=== PATIENT | male | born 1980 | race Caucasian/White ===

== ENCOUNTER 2018-02-02 16:24 | Emergency (ER) | payer OTHER ==
[2018-02-02 16:40] VITALS: TEMP 98.7
[2018-02-02] MEDS ORDERED: traMADol HCL 50 MG TAB PO ONE (16:48)
--- NOTE | 2018-02-02 17:19 | RAD ---
EXAM DESCRIPTION: Knee,Right Complete CLINICAL HISTORY: 37 years Male medial pain after twisting COMPARISON: None. TECHNIQUE: Right knee, 3 views FINDINGS: No acute fractures or dislocations are identified. No osseous destructive lesions. No joint effusion is noted. IMPRESSION: No acute fracture is identified. Electronically signed by: Rowena Nicolas MD 02/02/2018 5:18 PM CDT
--- NOTE | 2018-02-02 17:44 | ED.PDOC ---
History of Present Illness - General Chief Complaint: Lower Extremity Injury Stated Complaint: right knee injury Time Seen by Provider: 02/02/18 16:28 Source: patient Exam Limitations: no limitations - History of Present Illness Initial Comments: the patient is a 37-year-old male presenting to the emergency room secondary to right knee pain. He fell yesterday and twisted it. He had recently had a meniscus repair on that side 3 months ago. He had actually just Out of his knee brace and crutches. There is a mild joint effusion around the knee. He has tenderness to palpation medially. He reports that he feels that the knee will give out if he walks on it too much. The patient has significant guarding with the knee exam. No obvious crepitus or locking or popping on limited exam. Timing/Duration: 24 hours Severity: moderate Improving Factors: nothing Worsening Factors: movement Associated Symptoms: denies symptoms Allergies/Adverse Reactions: Allergies Cyclobenzaprine [From Flexeril] Allergy (Verified 02/02/18 16:45) Other edema Methocarbamol Allergy (Verified 08/04/16 15:49) Ondansetron [From Zofran] Allergy (Verified 02/02/18 16:45) Other "makes me sicker" Home Medications: Ambulatory Orders Tramadol HCl 50 mg PO Q8HRS PRN #30 tab 02/02/18 Review of Systems - Review of Systems Constitutional: States: no symptoms reported EENTM: States: no symptoms reported Respiratory: States: no symptoms reported Cardiology: States: no symptoms reported Gastrointestinal/Abdominal: States: no symptoms reported Genitourinary: States: no symptoms reported Musculoskeletal: States: see HPI Skin: States: no symptoms reported Neurological: States: no symptoms reported Endocrine: States: no symptoms reported All other Systems: No Change from Baseline Past Medical History (General) - Patient Medical History Hx Seizures: No Hx Stroke: Yes Hx Dementia: No Hx Asthma: Yes Hx of COPD: No Hx Cardiac Disorders: No Hx Congestive Heart Failure: Yes Hx Pacemaker: No Hx Hypertension: No Hx Thyroid Disease: No Hx Diabetes: Yes Hx Gastroesophageal Reflux: No Hx Renal Disease: No Hx Cancer: No Hx of HIV: No Hx Hepatitis C: No Hx MRSA: No Surgical History: other - Vaccination History Hx Tetanus, Diphtheria Vaccination: Yes Hx Influenza Vaccination: Yes Hx Pneumococcal Vaccination: No - Social History Hx Tobacco Use: Yes Hx Chewing Tobacco Use: No Hx Alcohol Use: Yes Hx Substance Use: No Hx Substance Use Treatment: No Hx Depression: No Hx Physical Abuse: No Hx Emotional Abuse: No Hx Suspected Abuse: No Family Medical History - Family History Father Family History: Unknown Living Status: Unknown Physical Exam - Physical Exam General Appearance: Alert, Comfortable, No apparent distress Eye Exam: bilateral normal Ears, Nose, Throat: normal ENT inspection, normal pharynx Respiratory: no respiratory distress, no accessory muscle use Cardiovascular/Chest: normal peripheral pulses, no edema Peripheral Pulses: radial,right: 2+, radial,left: 2+, dorsalis pedis,right: 2+, dorsalis pedis,left: 2+, posterior tibialis,right: 2+, posterior tibialis,left: 2+ Rectal Exam: deferred Extremity: normal range of motion, no pedal edema, no calf tenderness, normal capillary refill, other - see history of present illness Neurologic: alert, normal mood/affect, oriented x 3 Skin Exam: normal color Comments: Vital Signs - 24 hr 02/02/18 16:32 Temperature 98.7 F Pulse Rate [ 112 H right brachial] Respiratory 16 Rate Blood Pressure 162/111 [right brachial ] O2 Sat by Pulse 98 Oximetry Progress - Progress Progress: 02/02/18 17:44 the patient is a 37-year-old male presenting to the emergency room secondary to a repeat right knee injury. Suspected MCL strain versus partial tear. The patient is to resume his crutches and knee brace with minimal weightbearing. He needs to follow back up with his orthopedist in 1-2 weeks for repeat evaluation. Tramadol will be written for as needed use for pain control. Ibuprofen can be used additionally as needed. ER warnings were given for any significant worsening. X-ray of the right knee shows no acute bony pathology. Departure - Departure Clinical Impression: Sprain of knee Qualifiers: Encounter type: initial encounter Involved ligament of knee: medial collateral ligament Laterality: right Qualified Code(s): S83.411A - Sprain of medial collateral ligament of right knee, initial encounter Disposition: Discharge to Home or Self Care Condition: Fair Departure Forms: ED Discharge - Pt. Copy, Patient Portal Self Enrollment Diet: regular diet Activity: no pushing/pulling with affected limb Prescriptions: Tramadol HCl 50 mg PO Q8HRS PRN #30 tab PRN Reason: Joint Or Muscle Pain Home Medications: Ambulatory Orders Tramadol HCl 50 mg PO Q8HRS PRN #30 tab 02/02/18 Additional Instructions: the patient is a 37-year-old male presenting to the emergency room secondary to a repeat right knee injury. Suspected MCL strain versus partial tear. The patient is to resume his crutches and knee brace with minimal weightbearing. He needs to follow back up with his orthopedist in 1-2 weeks for repeat evaluation. Tramadol will be written for as needed use for pain control. Ibuprofen can be used additionally as needed. ER warnings were given for any significant worsening. X-ray of the right knee shows no acute bony pathology.
[2018-02-02 18:08] VITALS: BP 147/91; O2SAT 97
== END 2018-02-02 17:58 | disposition home or self-care (01) ==
LOC: ER 16:24
DX: S83.411A Sprain of medial collateral ligament of right knee, initial encounter (principal); I50.9 Heart failure, unspecified; E11.9 Type 2 diabetes mellitus without complications; Z86.73 Personal history of transient ischemic attack (TIA), and cerebral infarction without residual deficits; Z87.891 Personal history of nicotine dependence; X50.1XXA Overexertion from prolonged static or awkward postures, initial encounter; Y92.9 Unspecified place or not applicable

== ENCOUNTER 2018-04-11 23:25 | Emergency (ER) | payer OTHER ==
[2018-04-11 23:38] VITALS: BP 153/94; TEMP 99; O2SAT 95
[2018-04-11] MEDS ORDERED: KETOROLAC TROMETHAMINE INJ 60 MG/2 ML VIAL IM ONE (23:40)
[2018-04-11] MEDS ORDERED: traMADol HCL 50 MG (ER DISP) # 6 TABS PO ONE (23:40)
--- NOTE | 2018-04-11 23:42 | ED.PDOC ---
History of Present Illness - General Chief Complaint: Abdominal Pain Stated Complaint: mid abd pain Time Seen by Provider: 04/11/18 23:40 Information Source: patient, RN notes reviewed, Vital Signs reviewed Exam Limitations: no limitations - History of Present Illness Abdominal Pain Onset Location: periumbilical Pain Radiation: no radiation Quality: moderate, cramping, dull Timing/Duration: 7-24 hours Improving Factors: rest Worsening Factors: nothing Associated Symptoms: denies symptoms, other - pt reports new mass that is worsened with standing and coughing, no redness, no fever, no n/v or intactable pain Review of Systems - Review of Systems Constitutional: States: no symptoms reported EENTM: States: no symptoms reported Respiratory: States: no symptoms reported Cardiology: States: no symptoms reported Gastrointestinal/Abdominal: States: see HPI Genitourinary: States: no symptoms reported Musculoskeletal: States: no symptoms reported Skin: States: no symptoms reported Past Medical History (General) - Patient Medical History Hx Seizures: No Hx Stroke: Yes Hx Dementia: No Hx Asthma: Yes Hx of COPD: No Hx Cardiac Disorders: No Hx Congestive Heart Failure: Yes Hx Pacemaker: No Hx Hypertension: Yes Hx Thyroid Disease: No Hx Diabetes: Yes Hx Gastroesophageal Reflux: No Hx Renal Disease: No Hx Cancer: No Hx of HIV: No Hx Hepatitis C: No Hx MRSA: No Surgical History: other - Vaccination History Hx Tetanus, Diphtheria Vaccination: Yes Hx Influenza Vaccination: Yes Hx Pneumococcal Vaccination: No - Social History Hx Tobacco Use: Yes Hx Chewing Tobacco Use: No Hx Alcohol Use: No - smells of ETOH Hx Substance Use: No Hx Substance Use Treatment: No Hx Depression: No Feels Threatened In Home Enviroment: No Feels Threatened In a Relationship: No Hx Physical Abuse: No Hx Emotional Abuse: No Hx Suspected Abuse: No Family Medical History - Family History Father Family History: Unknown Living Status: Unknown Hx Family Asthma: No Hx Family Congestive Heart Failure: No Physical Exam - Physical Exam General Appearance: Alert, No apparent distress, Well Developed, Well Groomed, Well Hydrated, Well Nourished Eyes, Ears, Nose, Throat Exam: PERRL/EOMI, normal ENT inspection Neck: non-tender, full range of motion, supple Respiratory: chest non-tender, lungs clear, normal breath sounds Cardiovascular/Chest: normal peripheral pulses, regular rate, rhythm, no edema Peripheral Pulses: No deficit Gastrointestinal/Abdominal: soft, hernia - mid abdomen, quarter size, reducable with no redness, not hard Back Exam: normal inspection, no CVA tenderness, no vertebral tenderness Extremity: normal range of motion, non-tender, normal inspection Neurologic: no motor/sensory deficits, alert, normal mood/affect Skin Exam: normal color, warm/dry Progress - Progress Progress: 04/11/18 23:46 gave precautions for incarcerated hernia, pt non toxic, pain is controlled, discussed hernia care with patient will return if acute worsening or problem Departure - Departure Clinical Impression: Hernia of abdominal wall Abdominal pain Qualifiers: Abdominal location: periumbilical Qualified Code(s): R10.33 - Periumbilical pain Time of Disposition: 23:43 Disposition: Discharge to Home or Self Care Condition: Excellent Departure Forms: ED Discharge - Pt. Copy, Patient Portal Self Enrollment Instructions: DI for Abdominal Pain-Adult, Abdominal Wall Hernias Diet: resume usual diet Activity: increase activity as tolerated, other - no lifting over 10lb Prescriptions: Celecoxib 100 mg PO BID PRN #20 cap PRN Reason: Pain Home Medications: Ambulatory Orders Tramadol HCl 50 mg PO Q8HRS PRN #30 tab 02/02/18 Celecoxib 100 mg PO BID PRN #20 cap 04/11/18 Lisinopril [Prinivil] 10 mg PO DAILY 04/11/18 Additional Instructions: return if your hernia becomes hard/ red or you have persistent vomiting
== END 2018-04-12 | disposition home or self-care (01) ==
LOC: ER 23:25
DX: K43.9 Ventral hernia without obstruction or gangrene (principal); I11.0 Hypertensive heart disease with heart failure; I50.9 Heart failure, unspecified; E11.9 Type 2 diabetes mellitus without complications; Z87.891 Personal history of nicotine dependence; Z86.73 Personal history of transient ischemic attack (TIA), and cerebral infarction without residual deficits

== ENCOUNTER 2018-04-24 21:23 | Emergency (ER) | payer OTHER ==
[2018-04-24 21:57] VITALS: TEMP 97.6
--- NOTE | 2018-04-24 22:08 | ED.PDOC ---
History of Present Illness - General Chief Complaint: Lower Extremity Injury Stated Complaint: left knee pain Time Seen by Provider: 04/24/18 22:02 Source: patient Exam Limitations: no limitations - History of Present Illness Initial Comments: Julian Hargrove 37 y/o male state while on top of the stairs of his trailer tying to put on a tarp for cover he slipped fell and twisted his left knee and ankle falling on his left side.had sharp pain the back of left knee after the incident on weight bearing.had surgery on his left knee 5 months ago in [place] by orthopedist Dr. Barrios Occurred: this evening Pain - Lower Extremity: moderate: Left Knee Method of Injury: twisted Improving Factors: rest Worsening Factors: movement Associated Symptoms: pain weight bearing left knee Allergies/Adverse Reactions: Allergies Cyclobenzaprine [From Flexeril] Allergy (Verified 04/11/18 23:32) Other edema Methocarbamol Allergy (Verified 04/11/18 23:32) Ondansetron [From Zofran] Allergy (Verified 04/11/18 23:32) Other "makes me sicker" Home Medications: Ambulatory Orders Tramadol HCl 50 mg PO Q8HRS PRN #30 tab 02/02/18 Celecoxib 100 mg PO BID PRN #20 cap 04/11/18 Lisinopril [Prinivil] 10 mg PO DAILY 04/11/18 Tramadol HCl 100 mg PO TID PRN #20 tab 04/24/18 Review of Systems - Review of Systems Constitutional: States: no symptoms reported EENTM: States: no symptoms reported Respiratory: States: no symptoms reported Cardiology: States: no symptoms reported Gastrointestinal/Abdominal: States: no symptoms reported Genitourinary: States: no symptoms reported Musculoskeletal: States: see HPI Skin: States: no symptoms reported Neurological: States: no symptoms reported Past Medical History (General) - Patient Medical History Hx Seizures: No Hx Stroke: Yes Hx Dementia: No Hx Asthma: Yes Hx of COPD: No Hx Cardiac Disorders: No Hx Congestive Heart Failure: Yes Hx Pacemaker: No Hx Hypertension: Yes Hx Thyroid Disease: No Hx Diabetes: Yes Hx Gastroesophageal Reflux: No Hx Renal Disease: No Hx Cancer: No Hx of HIV: No Hx Hepatitis C: No Hx MRSA: No Surgical History: other - both knees-arthroscopic - Vaccination History Hx Tetanus, Diphtheria Vaccination: Yes Hx Influenza Vaccination: Yes Hx Pneumococcal Vaccination: No - Social History Hx Tobacco Use: Yes Hx Chewing Tobacco Use: No Hx Alcohol Use: No Hx Substance Use: No Hx Substance Use Treatment: No Hx Depression: No Hx Physical Abuse: No Hx Emotional Abuse: No Hx Suspected Abuse: No - Female History Patient is a Female of Child Bearing Age (10 -59 yrs old): No Patient : No Family Medical History - Family History Father Family History: Unknown Living Status: Unknown Hx Family Asthma: No Hx Family Congestive Heart Failure: No Physical Exam - Physical Exam General Appearance: Alert, Comfortable, No apparent distress Eyes, Ears, Nose, Throat: normal ENT inspection Neck: non-tender, full range of motion, supple Cardiovascular/Respiratory: regular rate, rhythm, no M/R/G, normal peripheral pulses, normal breath sounds Gastrointestinal/Abdominal: non-tender, no organomegaly Back: no CVA tenderness, no vertebral tenderness Thigh/Hip: normal inspection, no evidence of injury Leg: normal inspection, no evidence of injury Knee: bone tenderness - left knee, limited ROM - painful left knee, other - knee crepitus Progress - Progress Progress: 04/24/18 22:26 Vital Signs - 8 hr 04/24/18 04/24/18 21:46 22:16 Temperature 97.6 F Pulse Rate [ 126 H 126 H left] Respiratory 18 18 Rate Blood Pressure 135/90 [left] O2 Sat by Pulse 96 Oximetry 04/24/18 22:34 Wants to get crutches at [facility] - EKG/XRAY/CT XRAY: knee - left no fracture also left ankle no fracture Departure - Departure Clinical Impression: Sprain of collateral ligament of left knee Qualifiers: Encounter type: initial encounter Qualified Code(s): S83.402A - Sprain of unspecified collateral ligament of left knee, initial encounter Sprain of left ankle Qualifiers: Encounter type: initial encounter Involved ligament of ankle: unspecified ligament Qualified Code(s): S93.402A - Sprain of unspecified ligament of left ankle, initial encounter Time of Disposition: 22:30 Disposition: Discharge to Home or Self Care Condition: Fair Departure Forms: ED Discharge - Pt. Copy, Patient Portal Self Enrollment Instructions: Knee Sprain (DC), Ligament Injuries in the Knee (DC) Prescriptions: Tramadol HCl 100 mg PO TID PRN #20 tab PRN Reason: Pain Home Medications: Ambulatory Orders Tramadol HCl 50 mg PO Q8HRS PRN #30 tab 02/02/18 Celecoxib 100 mg PO BID PRN #20 cap 04/11/18 Lisinopril [Prinivil] 10 mg PO DAILY 04/11/18 Tramadol HCl 100 mg PO TID PRN #20 tab 04/24/18 Additional Instructions: Follow up with primary Md/Orthopedist in [place];May use your knee brace at home
--- NOTE | 2018-04-24 22:15 | RAD ---
EXAM DESCRIPTION: Ankle,Left 2 Views CLINICAL HISTORY: 37 years Male, fall COMPARISON: None. FINDINGS: No fracture or dislocation. Soft tissues are unremarkable. IMPRESSION: No acute abnormality. Electronically signed by: Joe Chow MD 04/24/2018 10:14 PM CDT
--- NOTE | 2018-04-24 22:16 | RAD ---
EXAM DESCRIPTION: Knee,Left 2 or More Views CLINICAL HISTORY: 37 years Male, fell off ladder, landed on knee 3mo post surgery COMPARISON: February 02, 2018 FINDINGS: No fracture or dislocation. Soft tissues are unremarkable. IMPRESSION: No acute abnormality. Electronically signed by: Joe Chow MD 04/24/2018 10:15 PM CDT
[2018-04-24] MEDS ORDERED: HYDROcodone 10MG/APAP 325MG 1 EA TAB PO ONE (22:17)
[2018-04-24 22:45] VITALS: BP 136/74; O2SAT 98
== END 2018-04-24 22:45 | disposition home or self-care (01) ==
LOC: ER 21:23
DX: S83.402A Sprain of unspecified collateral ligament of left knee, initial encounter (principal); S93.402A Sprain of unspecified ligament of left ankle, initial encounter; J45.909 Unspecified asthma, uncomplicated; I11.0 Hypertensive heart disease with heart failure; I50.9 Heart failure, unspecified; Z87.891 Personal history of nicotine dependence; X50.1XXA Overexertion from prolonged static or awkward postures, initial encounter

== ENCOUNTER 2018-05-14 21:01 | Emergency (ER) | payer OTHER ==
[2018-05-14] MEDS ORDERED: ALUM & MAG HYDROX-SIMETHICONE 30 ML, LIDOCAINE VISCOUS 2% 15 ML PO ONE ×2 (21:20)
[2018-05-14] MEDS ORDERED: PANTOPRAZOLE SODIUM IV 40 MG VIAL IV ONE (21:49)
[2018-05-14] MEDS ORDERED: ALUM & MAG HYDROX-SIMETHICONE 30 ML UD ONE (21:51)
[2018-05-14] MEDS ORDERED: LIDOCAINE HCL 2% (MOUTH-THROAT) 15 ML UD ONE (21:51)
[2018-05-14] MEDS: ONDANSETRON ODT 8 MG TAB SL ONE ×2 (21:53→22:00)
[2018-05-14] MEDS ORDERED: PROMETHAZINE HCL INJ 12.5 MG in SODIUM CHLORIDE 0.9% 50ML 50 ML IVPB ONE (22:01)
[2018-05-14] MEDS ORDERED: SODIUM CHLORIDE 0.9% 50ML 50 ML ONE (22:06)
[2018-05-14] MEDS ORDERED: PROMETHAZINE HCL INJ 25 MG/ML VIAL ONE (22:06)
[2018-05-14] MEDS ORDERED: SODIUM CHLORIDE 0.9% 1000ML 1,000 ML IVS ONE (22:19)
--- NOTE | 2018-05-14 22:31 | RAD ---
EXAM: XR Abdomen 2 Views CLINICAL HISTORY: The patient is 37 years old and is Male; substernal chest pain, n/v TECHNIQUE: Frontal view of the abdomen/pelvis and upright or decubitus view of the abdomen. COMPARISON: No relevant prior studies available. FINDINGS: INTRAPERITONEAL SPACE: No free air. GASTROINTESTINAL TRACT: No disproportionate bowel distention or free intraperitoneal air is seen. BONES/JOINTS: The visualized bony structures demonstrate mild degenerative change in the lower lumbar spine. OTHER FINDINGS: No abnormal calcifications are identified. IMPRESSION: Negative for signs of obstruction or free air. There is a paucity of bowel gas. Electronically signed by: Mauro Uriarte MD 05/14/2018 10:30 PM CDT
--- NOTE | 2018-05-14 22:33 | RAD ---
EXAM: XR Chest, 2 Views CLINICAL HISTORY: The patient is 37 years old and is Male; substernal chest pain, n/v TECHNIQUE: Frontal and lateral views of the chest. COMPARISON: No relevant prior studies available. FINDINGS: LUNGS: There is minimal prominence of the interstitial markings which could be due to hypoinflation. The lungs are free of focal consolidation. There are low lung volumes. There is mild peribronchial perihilar cuffing. Pulmonary vascularity is within normal limits. PLEURAL SPACE: There is NO pneumothorax. There are no pleural effusions noted. HEART: The heart size is within normal limits. MEDIASTINUM: The mediastinal contour is unremarkable. BONES/JOINTS: Unremarkable .No acute fracture noted. TUBES, LINES AND DEVICES: There are electrocardiogram leads present. IMPRESSION: 1. There is minimal prominence of the interstitial markings which could be due to hypoinflation. 2. The lungs are free of focal consolidation. Electronically signed by: Mauro Uriarte MD 05/14/2018 10:32 PM CDT
--- NOTE | 2018-05-14 23:17 | CT ---
EXAM: CT Abdomen and Pelvis With Intravenous Contrast CLINICAL HISTORY: The patient is 37 years old and is Male; vomiting, lower chest pain, ventral hernia TECHNIQUE: Axial computed tomography images of the abdomen and pelvis with intravenous contrast. This exam was performed according to our departmental dose-optimization program, which includes automated exposure control, adjustment of the mA and/or kV according to patient size and/or use of iterative reconstruction technique. Coronal and sagittal reformats were submitted and reviewed. COMPARISON: Prior CT abdomen and pelvis with contrast from 09/13/2013 FINDINGS: LUNG BASES: Lung bases are clear. ABDOMEN: LIVER: Hepatic steatosis is identified. There is a newly visible central LEFT hepatic lobe 2.3 cm hypodense lesion in segment 4A. It may represent an atypical hemangioma. There is mild hepatomegaly. GALLBLADDER AND BILE DUCTS: Unremarkable. No calcified stones. No ductal dilation. PANCREAS: Unremarkable. No ductal dilation. No discrete lesion. No acute debra-pancreatic inflammatory change. SPLEEN: Unremarkable. No splenomegaly. No splenic lesion noted. ADRENALS: Unremarkable. No mass. KIDNEYS AND URETERS: Unremarkable. No solid mass. No hydronephrosis. STOMACH AND BOWEL: No evidence of bowel obstruction. No evidence of diverticulitis. PELVIS: APPENDIX: There is a normal appendix. BLADDER: Urinary bladder is unremarkable. REPRODUCTIVE: Unremarkable as visualized. ABDOMEN and PELVIS: INTRAPERITONEAL SPACE: Unremarkable. No free air. No significant fluid collection. BONES/JOINTS: There is lumbar straightening. No acute fracture. No dislocation. SOFT TISSUES: There is a tiny focus of inflammation in the anterior abdominal wall extending subcutaneously from images 49-53/113 of series 2. This is very subtle but if this is where the patient is focally tender, it could represent an extremely tiny omental infarct/inflammation. There is rectus diastases. VASCULATURE: Unremarkable. No abdominal aortic aneurysm. LYMPH NODES: Unremarkable. No significant retroperitoneal or pelvic lymphadenopathy. OTHER FINDINGS: There is no oral contrast. IMPRESSION: 1. Hepatic steatosis is identified. There is a newly visible central LEFT hepatic lobe 2.3 cm hypodense lesion in segment 4A. It may represent an atypical hemangioma. ACR White Paper guidelines (Antonio et al. JACR 2010; 7(10):751-35) suggest that no follow-up is necessary. 2. There is a tiny focus of inflammation in the intraperitoneal fat just subjacent to the anterior abdominal wall extending subcutaneously from images 49-53/113 of series 2. This is very subtle but if this is where the patient is focally tender, it could represent an extremely tiny omental infarct/inflammation. It is supraumbilical in the midline. No evidence of ventral hernia. 3. No other acute inflammatory process identified in the abdomen or pelvis. Electronically signed by: Mauro Uriarte MD 05/14/2018 11:16 PM CDT
[2018-05-14] MEDS ORDERED: PROMETHAZINE HCL 25 MG TAB PO ONE (23:52)
[2018-05-14] MEDS ORDERED: SUCRALFATE 1 GM/10 ML 1 GM UD PO ONE (23:52)
[2018-05-14] MEDS ORDERED: ALUMINUM & MAGNESIUM HYDROXIDE 30 ML UD PO ONE (23:52)
[2018-05-14] MEDS ORDERED: INSULIN LISPRO 100 UNITS/ML PEN SUBCU ONE (23:53)
--- NOTE | 2018-05-15 00:19 | ED.PDOC ---
History of Present Illness - General Chief Complaint: Chest Pain/PR Stated Complaint: painful respirations Time Seen by Provider: 05/14/18 21:13 Source: patient Exam Limitations: no limitations - History of Present Illness Initial Comments: the patient is a 37-year-old male presenting to the emergency room secondary to symptoms starting at around 5:30 this morning for about 15 hours prior to arrival. The patient started having some nausea and mid to upper abdominal pain. After a few hours he started throwing up. The pain started to go to his substernal area and then have some radiation to his back. He has had episodes of diaphoresis. No palpitations. No shortness of breath. He does not have any cardiac history. He does have a long-standing history of gastroesophageal reflux disease that has been poorly treated. He does have a known ventral hernia. The hernia has been causing him more pain today. On exam the patient does have epigastric discomfort palpation and he has pain over the hernia that he has not reduced today. After about 2 minutes of gentle pressure we're able to reduce the hernia. This did give some significant relief for about an hour and a half.the patient thinks he has thrown up between 10 and 15 times today Timing/Duration: other - see above Severity: moderate Improving Factors: immobilization Worsening Factors: movement Associated Symptoms: diaphoresis, loss of appetite, nausea/vomiting - no blood or bile Allergies/Adverse Reactions: Allergies Cyclobenzaprine [From Flexeril] Allergy (Verified 04/11/18 23:32) Other edema Methocarbamol Allergy (Verified 04/11/18 23:32) Ondansetron [From Zofran] Allergy (Verified 04/11/18 23:32) Other "makes me sicker" Home Medications: Ambulatory Orders Tramadol HCl 50 mg PO Q8HRS PRN #30 tab 02/02/18 Celecoxib 100 mg PO BID PRN #20 cap 04/11/18 Lisinopril [Prinivil] 10 mg PO DAILY 04/11/18 Tramadol HCl 100 mg PO TID PRN #20 tab 04/24/18 Metformin HCl [Metformin HCl ER] 500 mg PO DAILY #30 tab 05/15/18 Omeprazole 40 mg PO DAILY #14 cap 05/15/18 Sucralfate Tab [Carafate Tab] 1 gm PO QID #60 tab 05/15/18 Review of Systems - Review of Systems Constitutional: States: no symptoms reported EENTM: States: no symptoms reported Respiratory: States: no symptoms reported Cardiology: States: chest pain Gastrointestinal/Abdominal: States: abdominal pain, nausea, vomiting Genitourinary: States: no symptoms reported Musculoskeletal: States: no symptoms reported Skin: States: no symptoms reported Neurological: States: anxiety Endocrine: States: no symptoms reported All other Systems: No Change from Baseline Past Medical History (General) - Patient Medical History Hx Seizures: No Hx Stroke: No Hx Dementia: No Hx Asthma: No Hx of COPD: No Hx Cardiac Disorders: No Hx Congestive Heart Failure: No Hx Pacemaker: No Hx Hypertension: Yes Hx Thyroid Disease: No Hx Diabetes: No Hx Gastroesophageal Reflux: No Hx Renal Disease: No Hx Cancer: No Hx of HIV: No Hx Hepatitis C: No Hx MRSA: No - Vaccination History Hx Tetanus, Diphtheria Vaccination: Yes Hx Influenza Vaccination: Yes Hx Pneumococcal Vaccination: No Immunizations Up to Date: Yes - Social History Hx Tobacco Use: Yes Hx Chewing Tobacco Use: No Hx Alcohol Use: No Hx Substance Use: No Hx Substance Use Treatment: No Hx Depression: No Hx Physical Abuse: No Hx Emotional Abuse: No Hx Suspected Abuse: No - Female History Patient : No Family Medical History - Family History Father Family History: Unknown Living Status: Unknown Hx Family Asthma: No Hx Family Congestive Heart Failure: No Physical Exam - Physical Exam General Appearance: Alert, Anxious, Other - diaphoretic Eye Exam: bilateral normal Ears, Nose, Throat: normal ENT inspection, normal pharynx Neck: full range of motion, supple Respiratory: lungs clear, normal breath sounds, no respiratory distress, no accessory muscle use Cardiovascular/Chest: normal peripheral pulses, regular rate, rhythm, no edema Peripheral Pulses: radial,right: 2+, radial,left: 2+, dorsalis pedis,right: 2+, dorsalis pedis,left: 2+ Gastrointestinal/Abdominal: soft, other - see history of present illness Rectal Exam: deferred Back Exam: no CVA tenderness, no vertebral tenderness Extremity: normal range of motion, non-tender, normal inspection, no pedal edema , normal capillary refill Neurologic: performance improvement coordinator II-XII nml as tested, alert, normal mood/affect, oriented x 3 Skin Exam: diaphoresis Comments: Vital Signs - 24 hr 05/14/18 05/14/18 05/14/18 21:10 21:16 21:21 Temperature 97.9 F Pulse Rate 108 H Pulse Rate [ 106 H 102 H Apical] Respiratory 25 H 22 22 Rate Blood Pressure 139/95 [Right Arm] O2 Sat by Pulse 90 L 99 Oximetry 05/14/18 05/14/18 05/14/18 21:35 22:15 22:35 Temperature Pulse Rate Pulse Rate [ 98 H 99 H 100 H Apical] Respiratory 20 18 18 Rate Blood Pressure 140/104 143/88 144/94 [Right Arm] O2 Sat by Pulse 98 98 Oximetry Progress - Progress Progress: 05/15/18 01:18 the patient is a 37-year-old male presenting to emergency room secondary to symptoms that appear to be attributable to a incarcerated ventral hernia. We were able to reduce the hernia. The patient is feeling significantly better afterwards and is no longer throwing up. He is still sore around the area and will likely be for a week or 2. He did have a mild lactic acidosis which is not surprising given the duration of his symptoms. There was no elevation of muscle enzymes and no elevation of the d-dimer to indicate any significant bowel compromise. CT scan as well of the abdomen and pelvis showed no evidence of any bowel ischemia. He did have one small area just below the ventral hernia site that appeared to have a very small infarction of fatty tissue. The patient has had a couple of sets of cardiac enzymes run all of which are normal. He does need to work on losing weight. He does need to contact a general surgeon of his choice tomorrow to get set up for a ventral hernia repair as this one has demonstrated that it can trap bowel. He has been instructed instructed on how to reduce his hernia. ER warnings have been given for any significant worsening including acute worsening of pain over the next couple of days, recurrence of the vomiting, blood in the stool or vomitus, fever or any other significant negative change. he will be placed on Carafate and omeprazole for any gastritis for the next couple of weeks. He'll also be placed on metformin XL starting the day after tomorrow as he obviously is a diabetic but does need some control. he needs to follow-up with her primary care doctor later this week. - Results/Orders Results/Orders: initial EKG shows a heart rate of 108 bpm. Sinus rhythm. Tachycardia. Normal axis. Borderline R-wave progression in anterior leads. I did initially think there was either slight ST depression or T-wave inversions in leads V3 through V6 however this does not actually appear to be the case as there was no real separation between the peak of the BAO and the P-wave in these leads. Repeat EKG shows no acute ST segment changes as well. Normal sinus rhythm. Normal axis. Normal R-wave progression. Chest x-ray shows no acute pathology. Abdominal x-ray shows no acute pathology. CT scan of abdomen and pelvis with IV contrast shows an approximately 1 inch atypical hemangioma in the liver. He also does have a small area of inflammation are simply ischemia in the omentum just underlying the area of the previous hernia reduction. No obvious area of ischemia in the bowel. No perforation. Laboratory Results - last 24 hr 05/14/18 05/14/18 05/14/18 21:40 21:40 21:40 WBC 8.7 RBC 5.03 Hgb 15.6 Hct 43.4 MCV 86.3 MCH 31.1 H MCHC 36.0 RDW 13.3 Plt Count 211 MPV 8.7 Absolute Neuts (auto) 5.20 Absolute Lymphs (auto) 2.80 Absolute Monos (auto) 0.60 Absolute Eos (auto) 0.10 Absolute Basos (auto) 0.10 Neutrophils % 59.5 Lymphocytes % 31.7 Monocytes % 6.4 Eosinophils % 1.6 Basophils % 0.8 PT 9.3 INR 0.93 PTT (SP) 23.7 D-Dimer, Quantitative 0.42 Sodium 136 Potassium 3.7 Chloride 101 Carbon Dioxide 25 Anion Gap 13.7 BUN 6 L Creatinine 0.81 BUN/Creatinine Ratio 7.4 L Random Glucose 288 H Serum Osmolality 280.1 Lactic Acid Calcium 9.6 Total Bilirubin 0.3 AST 54 H ALT 58 Alkaline Phosphatase 83 Creatine Kinase 78 CK-MB (CK-2) 0.8 CK-MB (CK-2) % Not Reportable Troponin I < 0.02 B-Natriuretic Peptide 8.7 Serum Total Protein 7.5 Albumin 4.0 Globulin 3.5 Albumin/Globulin Ratio 1.1 Amylase 33 05/14/18 05/15/18 21:40 00:26 WBC RBC Hgb Hct MCV MCH MCHC RDW Plt Count MPV Absolute Neuts (auto) Absolute Lymphs (auto) Absolute Monos (auto) Absolute Eos (auto) Absolute Basos (auto) Neutrophils % Lymphocytes % Monocytes % Eosinophils % Basophils % PT INR PTT (SP) D-Dimer, Quantitative Sodium Potassium Chloride Carbon Dioxide Anion Gap BUN Creatinine BUN/Creatinine Ratio Random Glucose Serum Osmolality Lactic Acid 2.7 H* Calcium Total Bilirubin AST ALT Alkaline Phosphatase Creatine Kinase 56 CK-MB (CK-2) 0.7 CK-MB (CK-2) % Not Reportable Troponin I < 0.02 B-Natriuretic Peptide Serum Total Protein Albumin Globulin Albumin/Globulin Ratio Amylase Departure - Departure Clinical Impression: Incarcerated hernia Gastritis Qualifiers: Gastritis type: other gastritis Chronicity: acute Gastritis bleeding: without bleeding Qualified Code(s): K29.00 - Acute gastritis without bleeding Disposition: Discharge to Home or Self Care Condition: Fair Departure Forms: ED Discharge - Pt. Copy, Patient Portal Self Enrollment Instructions: Abdominal Hernia (DC) Diet: bland diet Activity: increase activity as tolerated Prescriptions: Metformin HCl [Metformin HCl ER] 500 mg PO DAILY #30 tab Omeprazole 40 mg PO DAILY #14 cap Sucralfate Tab [Carafate Tab] 1 gm PO QID #60 tab Home Medications: Ambulatory Orders Tramadol HCl 50 mg PO Q8HRS PRN #30 tab 02/02/18 Celecoxib 100 mg PO BID PRN #20 cap 04/11/18 Lisinopril [Prinivil] 10 mg PO DAILY 04/11/18 Tramadol HCl 100 mg PO TID PRN #20 tab 04/24/18 Metformin HCl [Metformin HCl ER] 500 mg PO DAILY #30 tab 05/15/18 Omeprazole 40 mg PO DAILY #14 cap 05/15/18 Sucralfate Tab [Carafate Tab] 1 gm PO QID #60 tab 05/15/18 Additional Instructions: the patient is a 37-year-old male presenting to emergency room secondary to symptoms that appear to be attributable to a incarcerated ventral hernia. We were able to reduce the hernia. The patient is feeling significantly better afterwards and is no longer throwing up. He is still sore around the area and will likely be for a week or 2. He did have a mild lactic acidosis which is not surprising given the duration of his symptoms. There was no elevation of muscle enzymes and no elevation of the d-dimer to indicate any significant bowel compromise. CT scan as well of the abdomen and pelvis showed no evidence of any bowel ischemia. He did have one small area just below the ventral hernia site that appeared to have a very small infarction of fatty tissue. The patient has had a couple of sets of cardiac enzymes run all of which are normal. He does need to work on losing weight. He does need to contact a general surgeon of his choice tomorrow to get set up for a ventral hernia repair as this one has demonstrated that it can trap bowel. He has been instructed instructed on how to reduce his hernia. ER warnings have been given for any significant worsening including acute worsening of pain over the next couple of days, recurrence of the vomiting, blood in the stool or vomitus, fever or any other significant negative change. he will be placed on Carafate and omeprazole for any gastritis for the next couple of weeks. He'll also be placed on metformin XL starting the day after tomorrow as he obviously is a diabetic but does need some control. he needs to follow-up with her primary care doctor later this week. 05/15/18 01:23
[2018-05-15] MEDS ORDERED: MORPHINE SULFATE INJ 10 MG/ML VIAL IV ONE (00:25)
[2018-05-15 01:29] VITALS: BP 156/97; O2SAT 98
[2018-05-15 01:40] VITALS: TEMP 97.6
== END 2018-05-15 01:40 | disposition home or self-care (01) ==
LOC: ER 21:01
DX: K29.00 Acute gastritis without bleeding (principal); K43.6 Other and unspecified ventral hernia with obstruction, without gangrene; I10 Essential (primary) hypertension; R00.0 Tachycardia, unspecified; E11.9 Type 2 diabetes mellitus without complications; Z79.899 Other long term (current) drug therapy; Z79.84 Long term (current) use of oral hypoglycemic drugs; Z87.891 Personal history of nicotine dependence
CPT/HCPCS: 71046; 74019; 74177; 80053; 82150; 82550; 82553; 83605; 83880; 84484; 85025; 85379; 85610; 85730; 93005; 94640; A4216; J1815; J2270; J2550; J7030; Q0169

== ENCOUNTER 2018-05-19 14:49 | Emergency (ER) | payer OTHER ==
[2018-05-19 15:02] VITALS: O2SAT 98
--- NOTE | 2018-05-19 15:25 | ED.PDOC ---
History of Present Illness - General Chief Complaint: Abdominal Pain Time Seen by Provider: 05/19/18 15:18 Information Source: patient Exam Limitations: no limitations - History of Present Illness Abdominal Pain Onset Location: epigastric Pain Radiation: no radiation Quality: moderate Timing/Duration: 1 week - was here with incarcerated ventral hernia 5 days ago which was reduced Improving Factors: nothing Worsening Factors: movement Associated Symptoms: nausea/vomiting Review of Systems - Review of Systems Constitutional: States: no symptoms reported EENTM: States: no symptoms reported Respiratory: States: no symptoms reported Cardiology: States: no symptoms reported Gastrointestinal/Abdominal: States: abdominal pain, nausea Genitourinary: States: no symptoms reported Musculoskeletal: States: no symptoms reported Skin: States: no symptoms reported Neurological: States: no symptoms reported Hematologic/Lymphatic: States: no symptoms reported Past Medical History (General) - Patient Medical History Hx Seizures: No Hx Stroke: No Hx Dementia: No Hx Asthma: No Hx of COPD: No Hx Cardiac Disorders: No Hx Congestive Heart Failure: No Hx Pacemaker: No Hx Hypertension: Yes Hx Thyroid Disease: No Hx Diabetes: Yes Hx Gastroesophageal Reflux: Yes Hx Renal Disease: No Hx Cancer: No Hx of HIV: No Hx Hepatitis C: No Hx MRSA: No - Vaccination History Hx Tetanus, Diphtheria Vaccination: No Hx Influenza Vaccination: Yes Hx Pneumococcal Vaccination: Yes Immunizations Up to Date: No - Social History Hx Tobacco Use: Yes Hx Chewing Tobacco Use: No Hx Alcohol Use: No Hx Substance Use: No Hx Substance Use Treatment: No Hx Depression: No Feels Threatened In Home Enviroment: No Feels Threatened In a Relationship: No Hx Physical Abuse: No Hx Emotional Abuse: No Hx Suspected Abuse: No - Activities of Daily Living Hospice Agency (if applicable):: None - Female History Patient is a Female of Child Bearing Age (10 -59 yrs old): No Patient : No Family Medical History - Family History Father Family History: Unknown Living Status: Unknown Hx Family Asthma: No Hx Family Congestive Heart Failure: No Physical Exam - Physical Exam General Appearance: Alert, Obvious distress Eyes, Ears, Nose, Throat Exam: PERRL/EOMI, pharynx normal Neck: non-tender, supple Respiratory: chest non-tender, lungs clear, normal breath sounds Cardiovascular/Chest: regular rate, rhythm, no edema Gastrointestinal/Abdominal: normal bowel sounds, soft, tenderness - in midline just prox to umbilicus with fingertip size mass/hernia that reduces easily; no guarding or rebound Extremity: normal range of motion, non-tender, normal inspection Progress - EKG/XRAY/CT XRAY: abdomen - WNL CT Ordered: No CT Interpretation Call Back: No Departure - Departure Clinical Impression: Hernia of abdominal wall Disposition: Discharge to Home or Self Care Departure Forms: ED Discharge - Pt. Copy, Patient Portal Self Enrollment Instructions: DI for Abdominal Pain-Adult Prescriptions: Tramadol HCl 50 mg PO Q6HR PRN #15 tab PRN Reason: Pain Home Medications: Ambulatory Orders Tramadol HCl 50 mg PO Q8HRS PRN #30 tab 02/02/18 Celecoxib 100 mg PO BID PRN #20 cap 04/11/18 Lisinopril [Prinivil] 10 mg PO DAILY 04/11/18 Tramadol HCl 100 mg PO TID PRN #20 tab 04/24/18 Metformin HCl [Metformin HCl ER] 500 mg PO DAILY #30 tab 05/15/18 Omeprazole 40 mg PO DAILY #14 cap 05/15/18 Sucralfate Tab [Carafate Tab] 1 gm PO QID #60 tab 05/15/18 Tramadol HCl 50 mg PO Q6HR PRN #15 tab 05/19/18
[2018-05-19] MEDS ORDERED: PROMETHAZINE HCL INJ 12.5 MG in SODIUM CHLORIDE 0.9% 50ML 50 ML IVPB ONE (15:31)
[2018-05-19] MEDS ORDERED: KETOROLAC TROMETHAMINE INJ 30 MG/ML VIAL IV ONE (15:32)
[2018-05-19] MEDS ORDERED: PROMETHAZINE HCL INJ 25 MG/ML VIAL ONE (15:56)
[2018-05-19] MEDS ORDERED: SODIUM CHLORIDE 0.9% 50ML 50 ML ONE (15:56)
[2018-05-19] MEDS ORDERED: HYDROcodone 7.5MG/APAP 325MG 1 EA TAB PO ONE (16:45)
--- NOTE | 2018-05-19 16:50 | RAD ---
EXAM: XR Abdomen, 2 Views CLINICAL HISTORY: The patient is 37 years old and is Male; epigastric pain, hx of ventral hernia TECHNIQUE: Frontal view of the abdomen/pelvis with upright view of the abdomen. COMPARISON: Prior study from 05/14/2018. FINDINGS: INTRAPERITONEAL SPACE: No free air. GASTROINTESTINAL TRACT: Unremarkable. No disproportionate dilation. BONES/JOINTS: Unremarkable except for minimal lower lumbar degenerative change. No acute fracture noted. IMPRESSION: Normal abdominal x-rays. No change. Electronically signed by: Mauro Uriarte MD 05/19/2018 4:48 PM CDT
[2018-05-19 18:04] VITALS: BP 128/82; TEMP 98.6
== END 2018-05-19 17:25 | disposition home or self-care (01) ==
LOC: ER 14:49
DX: K43.9 Ventral hernia without obstruction or gangrene (principal); R11.2 Nausea with vomiting, unspecified; E11.9 Type 2 diabetes mellitus without complications; I10 Essential (primary) hypertension; K21.9 Gastro-esophageal reflux disease without esophagitis; Z79.84 Long term (current) use of oral hypoglycemic drugs; Z79.899 Other long term (current) drug therapy
CPT/HCPCS: 36415; 74019; 80053; 83605; 83690; 85025; A4216; J1885; J2550

== ENCOUNTER 2018-05-22 15:20 | Emergency (ER) | payer OTHER ==
[2018-05-22 15:54] VITALS: TEMP 97.8
[2018-05-22] MEDS ORDERED: MORPHINE SULFATE INJ 10 MG/ML VIAL IM ONE (16:08)
[2018-05-22] MEDS ORDERED: PROMETHAZINE HCL INJ 25 MG/ML VIAL IM ONE (16:09)
--- NOTE | 2018-05-22 16:11 | ED.PDOC ---
History of Present Illness - General Chief Complaint: GI Problem Stated Complaint: abdominal pain Time Seen by Provider: 05/22/18 16:07 Information Source: patient Exam Limitations: no limitations - History of Present Illness Initial Comments: HAS A HX OF A VENTRAL HERNIA. HE C/O ABDOMINAL PAIN. RECENTLY HAD A CT ABDOMEN WITH CONTRAST. Abdominal Pain Onset Location: periumbilical Pain Radiation: no radiation Quality: severe Timing/Duration: 4-6 hours Improving Factors: nothing Worsening Factors: nothing Associated Symptoms: denies symptoms Review of Systems - Review of Systems Constitutional: States: no symptoms reported EENTM: States: no symptoms reported Respiratory: States: no symptoms reported Cardiology: States: no symptoms reported Gastrointestinal/Abdominal: States: abdominal pain Musculoskeletal: States: no symptoms reported Skin: States: no symptoms reported Neurological: States: no symptoms reported Endocrine: States: no symptoms reported Hematologic/Lymphatic: States: no symptoms reported Past Medical History (General) - Patient Medical History Hx Seizures: No Hx Stroke: No Hx Dementia: No Hx Asthma: No Hx of COPD: No Hx Cardiac Disorders: No Hx Congestive Heart Failure: No Hx Pacemaker: No Hx Hypertension: Yes Hx Thyroid Disease: No Hx Diabetes: Yes Hx Gastroesophageal Reflux: Yes Hx Renal Disease: No Hx Cancer: No Hx of HIV: No Hx Hepatitis C: No Hx MRSA: No Surgical History: other - Vaccination History Hx Tetanus, Diphtheria Vaccination: No Hx Influenza Vaccination: Yes Hx Pneumococcal Vaccination: Yes - Social History Hx Tobacco Use: Yes Hx Chewing Tobacco Use: No Hx Alcohol Use: No Hx Substance Use: No Hx Substance Use Treatment: No Hx Depression: No Hx Physical Abuse: No Hx Emotional Abuse: No Hx Suspected Abuse: No - Female History Patient : No Family Medical History - Family History Father Family History: Unknown Living Status: Unknown Hx Family Asthma: No Hx Family Congestive Heart Failure: No Physical Exam - Physical Exam General Appearance: Obvious distress, Restless Eyes, Ears, Nose, Throat Exam: PERRL/EOMI, normal ENT inspection, TMs normal Neck: non-tender, full range of motion, supple, normal inspection Respiratory: chest non-tender, lungs clear, normal breath sounds, no respiratory distress, no accessory muscle use Cardiovascular/Chest: normal peripheral pulses, regular rate, rhythm, no edema, no gallop, no JVD Gastrointestinal/Abdominal: normal bowel sounds, other - THERE IS A DEFECT ON THE SUPRAUMBILICAL REGION BUT CANNOT FEEL AN INTESTINAL PROTRUSION Rectal Exam: deferred Extremity: normal range of motion Progress - Progress Progress: 05/22/18 17:24 THE PATIENT SEEMS TO BE IMPROVED. I HAVE REVIEWED THE CT ABDOMEN DONE IN THE RECENT PAST. THE RADIOLOGIST VOICES THAT IT COULBE BE A SMALL OMENTAL INFARCTION, NO EVIDENCE OF A HERNIA WAS NOTED. Departure - Departure Clinical Impression: Abdominal pain Qualifiers: Abdominal location: upper abdomen, unspecified Qualified Code(s): R10.10 - Upper abdominal pain, unspecified Time of Disposition: 17:26 Disposition: Discharge to Home or Self Care Condition: Good Departure Forms: ED Discharge - Pt. Copy, Patient Portal Self Enrollment Instructions: DI for Abdominal Pain-Adult Diet: resume usual diet Activity: increase activity as tolerated Prescriptions: Acetaminophen W/ Codeine [Tylenol W/ CODEINE #3] 1 ea PO Q6HRS #20 Home Medications: Ambulatory Orders Tramadol HCl 50 mg PO Q8HRS PRN #30 tab 02/02/18 Celecoxib 100 mg PO BID PRN #20 cap 04/11/18 Lisinopril [Prinivil] 10 mg PO DAILY 04/11/18 Tramadol HCl 100 mg PO TID PRN #20 tab 04/24/18 Metformin HCl [Metformin HCl ER] 500 mg PO DAILY #30 tab 05/15/18 Omeprazole 40 mg PO DAILY #14 cap 05/15/18 Sucralfate Tab [Carafate Tab] 1 gm PO QID #60 tab 05/15/18 Tramadol HCl 50 mg PO Q6HR PRN #15 tab 05/19/18 Acetaminophen W/ Codeine [Tylenol W/ CODEINE #3] 1 ea PO Q6HRS #20 05/22/18
[2018-05-22 17:19] VITALS: BP 144/98; O2SAT 97
== END 2018-05-22 17:37 | disposition home or self-care (01) ==
LOC: ER 15:20
DX: R10.10 Upper abdominal pain, unspecified (principal); E11.9 Type 2 diabetes mellitus without complications; I10 Essential (primary) hypertension; K21.9 Gastro-esophageal reflux disease without esophagitis; Z87.19 Personal history of other diseases of the digestive system; Z87.891 Personal history of nicotine dependence
CPT/HCPCS: J2270; J2550

== ENCOUNTER 2018-06-10 20:22 | Emergency (ER) | payer OTHER ==
[2018-06-10 20:38] VITALS: O2SAT 98
--- NOTE | 2018-06-10 20:49 | ED.PDOC ---
History of Present Illness - General Chief Complaint: Bite: Animal/Insect/Human Stated Complaint: left ring finger bite Time Seen by Provider: 06/10/18 20:41 Source: patient Exam Limitations: no limitations - History of Present Illness Initial Comments: Julian Hargrove 37 y/o male stated he had brown recluse spider biteon his left index finger last night while moving a bed at his garage saw the spider ran and googled how it looks and stated it was brown recluse.Had localized pain initially and tonight felt nauseated with sharp pain on his left hand.His Tdap UTD. Timing/Duration: 24 hours Severity: moderate Improving Factors: rest Worsening Factors: movement Associated Symptoms: nausea/vomiting, other - pain Allergies/Adverse Reactions: Allergies Cyclobenzaprine [From Flexeril] Allergy (Verified 05/22/18 15:54) Other edema Methocarbamol Allergy (Verified 05/22/18 15:54) Ondansetron [From Zofran] Allergy (Verified 05/22/18 15:54) Other "makes me sicker" Home Medications: Ambulatory Orders Tramadol HCl 50 mg PO Q8HRS PRN #30 tab 02/02/18 Lisinopril [Prinivil] 10 mg PO DAILY 04/11/18 Metformin HCl [Metformin HCl ER] 500 mg PO DAILY #30 tab 05/15/18 Omeprazole 40 mg PO DAILY #14 cap 05/15/18 Atorvastatin Calcium [Lipitor] 10 mg PO 06/10/18 Dapsone 50 mg PO BID 10 Days #40 tab 06/10/18 Promethazine Tab [Phenergan Tablet] 25 mg PO .Q4H PRN #20 tab 06/10/18 Zolpidem Tartrate 10 mg PO 06/10/18 Review of Systems - Review of Systems Constitutional: States: no symptoms reported EENTM: States: no symptoms reported Respiratory: States: no symptoms reported Cardiology: States: no symptoms reported Gastrointestinal/Abdominal: States: no symptoms reported Genitourinary: States: no symptoms reported Musculoskeletal: States: see HPI Skin: States: see HPI Endocrine: States: no symptoms reported Past Medical History (General) - Patient Medical History Hx Seizures: No Hx Stroke: No Hx Dementia: No Hx Asthma: No Hx of COPD: No Hx Cardiac Disorders: No Hx Congestive Heart Failure: No Hx Pacemaker: No Hx Hypertension: Yes Hx Thyroid Disease: No Hx Diabetes: Yes Hx Gastroesophageal Reflux: Yes Hx Renal Disease: No Hx Cancer: No Hx of HIV: No Hx Hepatitis C: No Hx MRSA: No Surgical History: other - both knees - Vaccination History Hx Tetanus, Diphtheria Vaccination: Yes - states 3 years ago Hx Influenza Vaccination: Yes Hx Pneumococcal Vaccination: Yes - Social History Hx Tobacco Use: Yes Years Tobacco Use: 15 Cigarettes Packs Per Day: 10 Hx Chewing Tobacco Use: No Hx Alcohol Use: No Hx Substance Use: No Hx Substance Use Treatment: No Hx Depression: No Hx Physical Abuse: No Hx Emotional Abuse: No Hx Suspected Abuse: No - Female History Patient : No Family Medical History - Family History Father Family History: Unknown Living Status: Unknown Hx Family Asthma: No Hx Family Congestive Heart Failure: No Hx Family Diabetes: Yes - multiple family members Physical Exam - Physical Exam General Appearance: Alert, Comfortable, No apparent distress Eye Exam: bilateral normal Ears, Nose, Throat: hearing grossly normal, normal ENT inspection Neck: non-tender, supple Respiratory: chest non-tender, lungs clear, normal breath sounds Cardiovascular/Chest: normal peripheral pulses, regular rate, rhythm, no murmur Peripheral Pulses: radial,right: 2+, radial,left: 2+ Gastrointestinal/Abdominal: non tender, soft Back Exam: no CVA tenderness, no vertebral tenderness Extremity: no pedal edema, no calf tenderness Neurologic: alert, oriented x 3 Skin Exam: normal color, warm/dry, other - tender localized swelling proximal phalanx left ring finger Progress - Progress Progress: 06/10/18 20:54 Last Vital Signs Temp 96.8 F L 06/10/18 20:27 Pulse 121 H 06/10/18 20:27 Resp 18 06/10/18 20:27 BP 142/76 06/10/18 20:27 Pulse Ox 98 06/10/18 20:27 06/10/18 21:07 Explained to patient that treatment with oral antibiotic is controversial it might not prevent further necrosis of skin and need to follow up with Dr. 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 06/10/18 21:10 Departure - Departure Clinical Impression: Cellulitis of left ring finger Brown recluse spider bite or sting Qualifiers: Encounter type: initial encounter Injury intent: accidental or unintentional Qualified Code(s): T63.331A - Toxic effect of venom of brown recluse spider, accidental (unintentional), initial encounter Time of Disposition: 21:02 Disposition: Discharge to Home or Self Care Condition: Fair Departure Forms: ED Discharge - Pt. Copy, Patient Portal Self Enrollment Instructions: Spider Bites, Insect Bites and Stings (DC) Prescriptions: Dapsone 50 mg PO BID 10 Days #40 tab Promethazine Tab [Phenergan Tablet] 25 mg PO .Q4H PRN #20 tab PRN Reason: Nausea Home Medications: Ambulatory Orders Tramadol HCl 50 mg PO Q8HRS PRN #30 tab 02/02/18 Lisinopril [Prinivil] 10 mg PO DAILY 04/11/18 Metformin HCl [Metformin HCl ER] 500 mg PO DAILY #30 tab 05/15/18 Omeprazole 40 mg PO DAILY #14 cap 05/15/18 Atorvastatin Calcium [Lipitor] 10 mg PO 06/10/18 Dapsone 50 mg PO BID 10 Days #40 tab 06/10/18 Promethazine Tab [Phenergan Tablet] 25 mg PO .Q4H PRN #20 tab 06/10/18 Zolpidem Tartrate 10 mg PO 06/10/18 Additional Instructions: Follow up with your primary Md in am for referral to orthopedist or plastic surgeoun or with Dr. Rodriges surgeon call his office in am 11 June 2018;continue with all home medications
[2018-06-10] MEDS ORDERED: traMADol HCL 50 MG (ER DISP) # 6 TABS PO ONE (21:04)
[2018-06-10] MEDS ORDERED: PROMETHAZINE SUPP (ER DISP) 25 MG SUP PR ONE (21:04)
[2018-06-10 21:39] VITALS: BP 125/53; TEMP 97.9
== END 2018-06-10 21:39 | disposition home or self-care (01) ==
LOC: ER 20:22
DX: T63.331A Toxic effect of venom of brown recluse spider, accidental (unintentional), initial encounter (principal); L03.012 Cellulitis of left finger; R11.2 Nausea with vomiting, unspecified; I10 Essential (primary) hypertension; E11.9 Type 2 diabetes mellitus without complications; K21.9 Gastro-esophageal reflux disease without esophagitis; Z87.891 Personal history of nicotine dependence; Z79.899 Other long term (current) drug therapy; Y92.008 Other place in unspecified non-institutional (private) residence as the place of occurrence of the external cause

== ENCOUNTER 2018-06-18 14:32 | Emergency (ER) | payer OTHER ==
[2018-06-18 14:43] VITALS: TEMP 98.6
--- NOTE | 2018-06-18 16:01 | ED.PDOC ---
History of Present Illness - General Chief Complaint: Dental/Mouth Stated Complaint: dental pain Time Seen by Provider: 06/18/18 16:00 Source: patient Exam Limitations: no limitations - History of Present Illness Initial Comments: Julian Hargrove 37 y/o male stated that for the last 2 days had been having throbbing dental pain mostly on the left side lower jaw has appointment with dentist in 2 weeks. No fever,no drooling,no dysphagia. Timing/Duration: gradual EENT Location: dental Prearrival Treatment: no prearrival treatment Presenting Symptoms: pain dental Improving Factors: rest Worsening Factors: eating Associated Symptoms: denies symptoms Allergies/Adverse Reactions: Allergies Cyclobenzaprine [From Flexeril] Allergy (Verified 05/22/18 15:54) Other edema Methocarbamol Allergy (Verified 05/22/18 15:54) Ondansetron [From Zofran] Allergy (Verified 05/22/18 15:54) Other "makes me sicker" Home Medications: Ambulatory Orders Tramadol HCl 50 mg PO Q8HRS PRN #30 tab 02/02/18 Lisinopril [Prinivil] 10 mg PO DAILY 04/11/18 Metformin HCl [Metformin HCl ER] 500 mg PO DAILY #30 tab 05/15/18 Omeprazole 40 mg PO DAILY #14 cap 05/15/18 Atorvastatin Calcium [Lipitor] 10 mg PO 06/10/18 Dapsone 50 mg PO BID 10 Days #40 tab 06/10/18 Promethazine Tab [Phenergan Tablet] 25 mg PO .Q4H PRN #20 tab 06/10/18 Zolpidem Tartrate 10 mg PO 06/10/18 Acetamin W/Cod #3 Tab [Tylenol w/CODEINE #3] 1 ea PO TID PRN #3 tab 06/18/18 Clindamycin HCl 150 mg PO TID 10 Days #30 cap 06/18/18 Review of Systems - Review of Systems Constitutional: States: no symptoms reported EENTM: States: see HPI Respiratory: States: no symptoms reported Cardiology: States: no symptoms reported Neurological: States: no symptoms reported Endocrine: States: no symptoms reported Past Medical History (General) - Patient Medical History Hx Seizures: No Hx Stroke: No Hx Dementia: No Hx Asthma: No Hx of COPD: No Hx Cardiac Disorders: No Hx Congestive Heart Failure: No Hx Pacemaker: No Hx Hypertension: Yes Hx Thyroid Disease: No Hx Diabetes: Yes Hx Gastroesophageal Reflux: Yes Hx Renal Disease: No Hx Cancer: No Hx of HIV: No Hx Hepatitis C: No Hx MRSA: No Surgical History: no surgical history - Vaccination History Hx Tetanus, Diphtheria Vaccination: Yes Hx Influenza Vaccination: Yes Hx Pneumococcal Vaccination: Yes Immunizations Up to Date: No - Social History Hx Tobacco Use: Yes Hx Chewing Tobacco Use: No Hx Alcohol Use: No Hx Substance Use: No Hx Substance Use Treatment: No Hx Depression: No Feels Threatened In Home Enviroment: No Feels Threatened In a Relationship: No Hx Physical Abuse: No Hx Emotional Abuse: No Hx Suspected Abuse: No - Activities of Daily Living Hospice Agency (if applicable):: None - Female History Patient is a Female of Child Bearing Age (10 -59 yrs old): No Patient : No Family Medical History - Family History Father Family History: Unknown Living Status: Unknown Hx Family Asthma: No Hx Family Congestive Heart Failure: No Hx Family Diabetes: Yes - multiple family members Physical Exam - Physical Exam General Appearance: Alert, Comfortable, No apparent distress Eye Exam: bilateral normal Ear Exam: bilateral ear: auricle normal, canal normal, TM normal Nasal Exam: normal inspection Throat Exam: pharynx normal, dental tenderness - left lower jaw, other - gum swelling left with multiple dental cavities Neck: full range of motion, supple, normal inspection, trachea midline Cardiovascular/Respiratory: regular rate, rhythm, no M/R/G, normal peripheral pulses, no JVD Abdominal Exam: non-tender, no organomegaly Neurologic: alert, oriented x 3 Skin Exam: normal color, warm/dry Progress - Progress Progress: 06/18/18 16:09 Vital Signs - 8 hr 06/18/18 06/18/18 06/18/18 14:32 14:49 15:13 Temperature 98.6 F Pulse Rate [ 107 H 89 113 H Apical] Respiratory 18 18 20 Rate Blood Pressure 154/96 135/47 136/97 [Left Arm] O2 Sat by Pulse 98 96 97 Oximetry - EKG/XRAY/CT CT Ordered: No CT Interpretation Call Back: No Departure - Departure Clinical Impression: Dental abscess, Chronic pulpitis Time of Disposition: 16:11 Disposition: Discharge to Home or Self Care Condition: Fair Departure Forms: ED Discharge - Pt. Copy, Patient Portal Self Enrollment Instructions: DI for Dental Pain Diet: other - SOFT DIET ONLY until better Prescriptions: Acetamin W/Cod #3 Tab [Tylenol w/CODEINE #3] 1 ea PO TID PRN #3 tab PRN Reason: Pain Clindamycin HCl 150 mg PO TID 10 Days #30 cap Home Medications: Ambulatory Orders Tramadol HCl 50 mg PO Q8HRS PRN #30 tab 02/02/18 Lisinopril [Prinivil] 10 mg PO DAILY 04/11/18 Metformin HCl [Metformin HCl ER] 500 mg PO DAILY #30 tab 05/15/18 Omeprazole 40 mg PO DAILY #14 cap 05/15/18 Atorvastatin Calcium [Lipitor] 10 mg PO 06/10/18 Dapsone 50 mg PO BID 10 Days #40 tab 06/10/18 Promethazine Tab [Phenergan Tablet] 25 mg PO .Q4H PRN #20 tab 06/10/18 Zolpidem Tartrate 10 mg PO 06/10/18 Acetamin W/Cod #3 Tab [Tylenol w/CODEINE #3] 1 ea PO TID PRN #3 tab 06/18/18 Clindamycin HCl 150 mg PO TID 10 Days #30 cap 06/18/18 Additional Instructions: KEEP APPOINTMENT WITH DENTIST
[2018-06-18] MEDS ORDERED: CLINDAMYCIN HCL CAP 150 MG CAP PO ONE (16:10)
[2018-06-18] MEDS ORDERED: CLINDAMYCIN PHOSPHATE 150 MG/ML VIAL IM ONE (16:10)
[2018-06-18] MEDS ORDERED: ACETAMINOPHEN W/COD #3 TAB 1 EA TAB PO ONE (16:11)
[2018-06-18 16:24] VITALS: BP 136/97; O2SAT 98
== END 2018-06-18 16:24 | disposition home or self-care (01) ==
LOC: ER 14:32
DX: K04.7 Periapical abscess without sinus (principal); K04.01 Reversible pulpitis; K02.9 Dental caries, unspecified; I10 Essential (primary) hypertension; K21.9 Gastro-esophageal reflux disease without esophagitis; E11.9 Type 2 diabetes mellitus without complications; Z87.891 Personal history of nicotine dependence; Z79.899 Other long term (current) drug therapy; Z79.84 Long term (current) use of oral hypoglycemic drugs; Z88.8 Allergy status to other drugs, medicaments and biological substances

== ENCOUNTER 2018-07-03 16:24 | Emergency (ER) | payer OTHER ==
[2018-07-03] MEDS ORDERED: KETOROLAC TROMETHAMINE INJ 60 MG/2 ML VIAL IM ONE (17:25)
[2018-07-03] MEDS ORDERED: LIDOCAINE HCL 2% (MOUTH-THROAT) 15 ML UD MT ONE (17:25)
[2018-07-03] MEDS ORDERED: CLINDAMYCIN HCL CAP 150 MG CAP PO ONE (17:25)
--- NOTE | 2018-07-03 17:29 | ED.PDOC ---
History of Present Illness - General Chief Complaint: Dental/Mouth Time Seen by Provider: 07/03/18 17:25 Source: patient Exam Limitations: no limitations - History of Present Illness Initial Comments: patient comes in today with worsening of dental pain. Patient's been dealing with dental pain for very long time and is currently undergoing treatment from the dentist. Patient states on the fourth he came into the emergency room and started on clindamycin and Tylenol 3. Patient states that helped immensely but 2 days ago the pain and swelling started to come back. Patient states his gum is red, swollen, and extremely painful on the teeth on the left inferior side. Patient did call the dentist but as it is a community antigen program and they stated they could not prescribe additional medication until his appointment. Patient has diabetes. He denies any fever, chills, nausea or vomiting but has been breaking out in sweats since the pain started. Timing/Duration: yesterday Severity: severe EENT Location: dental Prearrival Treatment: over the counter meds Improving Factors: nothing Worsening Factors: medication - tylenol # 3 that had been given here and clindamycin was helping Associated Symptoms: denies symptoms Allergies/Adverse Reactions: Allergies Cyclobenzaprine [From Flexeril] Allergy (Verified 05/22/18 15:54) Other edema Methocarbamol Allergy (Verified 05/22/18 15:54) Ondansetron [From Zofran] Allergy (Verified 05/22/18 15:54) Other "makes me sicker" Home Medications: Ambulatory Orders Tramadol HCl 50 mg PO Q8HRS PRN #30 tab 02/02/18 Lisinopril [Prinivil] 10 mg PO DAILY 04/11/18 Metformin HCl [Metformin HCl ER] 500 mg PO DAILY #30 tab 05/15/18 Omeprazole 40 mg PO DAILY #14 cap 05/15/18 Atorvastatin Calcium [Lipitor] 10 mg PO 06/10/18 Dapsone 50 mg PO BID 10 Days #40 tab 06/10/18 Promethazine Tab [Phenergan Tablet] 25 mg PO .Q4H PRN #20 tab 06/10/18 Zolpidem Tartrate 10 mg PO 06/10/18 Acetamin W/Cod #3 Tab [Tylenol w/CODEINE #3] 1 ea PO TID PRN #3 tab 06/18/18 Clindamycin HCl 150 mg PO TID 10 Days #30 cap 06/18/18 Clindamycin HCl 300 mg PO TID 7 Days #21 cap 07/03/18 Review of Systems - Review of Systems Constitutional: States: diaphoresis. Denies: chills, fever EENTM: States: see HPI Respiratory: States: no symptoms reported. Denies: cough, short of breath Cardiology: States: no symptoms reported. Denies: chest pain Gastrointestinal/Abdominal: States: no symptoms reported. Denies: abdominal pain, nausea, vomiting Genitourinary: States: no symptoms reported Musculoskeletal: States: no symptoms reported Past Medical History (General) - Patient Medical History Hx Seizures: No Hx Stroke: No Hx Dementia: No Hx Asthma: No Hx of COPD: No Hx Cardiac Disorders: No Hx Congestive Heart Failure: No Hx Pacemaker: No Hx Hypertension: Yes Hx Thyroid Disease: No Hx Diabetes: Yes Hx Gastroesophageal Reflux: Yes Hx Renal Disease: No Hx Cancer: No Hx of HIV: No Hx Hepatitis C: No Hx MRSA: No - Vaccination History Hx Tetanus, Diphtheria Vaccination: No Hx Influenza Vaccination: No Hx Pneumococcal Vaccination: No Immunizations Up to Date: No - Social History Hx Tobacco Use: Yes Hx Chewing Tobacco Use: No Hx Alcohol Use: No Hx Substance Use: No Hx Substance Use Treatment: No Hx Depression: No Feels Threatened In Home Enviroment: No Feels Threatened In a Relationship: No Hx Physical Abuse: No Hx Emotional Abuse: No Hx Suspected Abuse: No - Activities of Daily Living Hospice Agency (if applicable):: None - Female History Patient is a Female of Child Bearing Age (10 -59 yrs old): No Patient : No Family Medical History - Family History Father Family History: Unknown Living Status: Unknown Hx Family Asthma: No Hx Family Congestive Heart Failure: No Hx Family Diabetes: Yes - multiple family members Physical Exam - Physical Exam General Appearance: Alert, No apparent distress Eye Exam: bilateral normal Ear Exam: left ear: auricle normal, canal normal, TM normal Nasal Exam: normal inspection Throat Exam: other - broken cavitary lesions with missing teeth throughout his mouth. There are cavitary lesion on the left first and second molar as well as the incisor. Patient has slight erythema at the gumline but no purulence and no fluctuance and no edema Neck: non-tender, supple, normal inspection Cardiovascular/Respiratory: regular rate, rhythm, no M/R/G, normal peripheral pulses, normal breath sounds, no respiratory distress Abdominal Exam: other - normal bowel sounds Neurologic: alert, oriented x 3 Progress - Progress Progress: patient was advised that what I can do is maybe make him more comfortable today and he should follow-up with the dentist in the morning. We have given him Toradol 60 and viscous lidocaine for the pain right now. Will also start him back on his clindamycin. 07/03/18 17:29 - EKG/XRAY/CT CT Ordered: No CT Interpretation Call Back: No Departure - Departure Clinical Impression: Chronic dental pain Disposition: Discharge to Home or Self Care Condition: Fair Departure Forms: ED Discharge - Pt. Copy, Patient Portal Self Enrollment Referrals: MEGGAN JAEGER [Primary Care Provider] - 1-2 Weeks Home Medications: Ambulatory Orders Tramadol HCl 50 mg PO Q8HRS PRN #30 tab 02/02/18 Lisinopril [Prinivil] 10 mg PO DAILY 04/11/18 Metformin HCl [Metformin HCl ER] 500 mg PO DAILY #30 tab 05/15/18 Omeprazole 40 mg PO DAILY #14 cap 05/15/18 Atorvastatin Calcium [Lipitor] 10 mg PO 06/10/18 Dapsone 50 mg PO BID 10 Days #40 tab 06/10/18 Promethazine Tab [Phenergan Tablet] 25 mg PO .Q4H PRN #20 tab 06/10/18 Zolpidem Tartrate 10 mg PO 06/10/18 Acetamin W/Cod #3 Tab [Tylenol w/CODEINE #3] 1 ea PO TID PRN #3 tab 06/18/18 Clindamycin HCl 150 mg PO TID 10 Days #30 cap 06/18/18 Clindamycin HCl 300 mg PO TID 7 Days #21 cap 07/03/18 Additional Instructions: follow up with dentist in the morning
[2018-07-03 17:42] VITALS: BP 139/105; TEMP 97.6; O2SAT 96
== END 2018-07-03 17:42 | disposition home or self-care (01) ==
LOC: ER 16:24
DX: K02.9 Dental caries, unspecified (principal); S02.5XXA Fracture of tooth (traumatic), initial encounter for closed fracture; K08.109 Complete loss of teeth, unspecified cause, unspecified class; K21.9 Gastro-esophageal reflux disease without esophagitis; E11.9 Type 2 diabetes mellitus without complications; I10 Essential (primary) hypertension; E07.9 Disorder of thyroid, unspecified; Z87.891 Personal history of nicotine dependence; Z79.84 Long term (current) use of oral hypoglycemic drugs; Z79.899 Other long term (current) drug therapy; Z88.8 Allergy status to other drugs, medicaments and biological substances; X58.XXXA Exposure to other specified factors, initial encounter; Y92.9 Unspecified place or not applicable

== ENCOUNTER → 2020-11-17 | Outpatient (CLI) | payer OTHER | LOC: LAB.O 07:56 | PROVIDERS: ATTEND Nurse Practitioner Family | DX: G47.00 Insomnia, unspecified (principal) ==